=== PATIENT | male | born 1955 | race Hispanic/Latino ===

== ENCOUNTER 2017-03-10 12:13 | Outpatient (CLI) | payer MEDICAID, MEDICARE ==
[2017-03-10 13:02] LABS: Hematocrit 41.3 % (35.5-45.6); Hemoglobin 14.2 gm/dl (11.8-15.2); Mean Corpuscular HGB Conc 34 % (32-34); Mean Corpuscular Hemoglobin 31 pg (28-32); Mean Corpuscular Volume 91 fl (84-94); Platelet Count 179 K/mm3 (140-440); Red Blood Count 4.53 M/mm3 (3.65-5.03); Red Cell Distribution Width 14.2 % (13.2-15.2); White Blood Count 5.3 K/mm3 (4.5-11.0)
[2017-03-10 13:19] LABS: Alanine Aminotransferase 13 units/L (7-56); Albumin 4.3 g/dL (3.9-5); Albumin/Globulin Ratio 1.7 %; Alkaline Phosphatase 47 units/L (35-129); Anion Gap 13 mmol/L; BUN/Creatinine Ratio 26; Blood Urea Nitrogen 18 mg/dL (9-20); Calcium 9.3 mg/dL (8.4-10.2); Carbon Dioxide 32 mmol/L (22-30); Cholesterol 170 mg/dL (50-199); Glucose 85 mg/dL (75-100); HDL Cholesterol 56 mg/dL (40-59); LDL Cholesterol,Direct 88 mg/dL (50-130); Sodium 139 mmol/L (137-145); Total Protein 6.8 g/dL (6.3-8.2); Triglycerides 130 mg/dL (2-149)
[2017-03-10] MEDS ORDERED: NACL ONE (13:34)
--- NOTE | 2017-03-10 14:58 | Cat Scan Report ---
CT NECK WITH CONTRAST: HISTORY: Swelling in neck. TECHNIQUE: Helical CT following IV contrast. Sagittal and coronal reformatted images. FINDINGS: The parotid and submandibular glands are normal. The carotid sheaths are intact. There is no evidence of adenopathy within the neck. The thyroid gland is normal. The glottic structures are normal. The airway is patent. Strap musculature is unremarkable. Hyoid bone and thyroid cartilage are intact. IMPRESSION: Unremarkable CT neck. No mass, adenopathy or inflammatory changes are appreciated. CT CHEST WITH CONTRAST: HISTORY: COPD. TECHNIQUE: Helical CT following IV contrast. Sagittal and coronal reformatted images. FINDINGS: Heart size is normal. There is no evidence of adenopathy within the mediastinum. Pulmonary marv are free of any mass and the lungs are clear of infiltrates. Minimal centrilobular emphysematous changes are noted in the upper lobes. The pleura is unremarkable. Minor linear scarring or atelectasis is present in the lower lobes. No pleural effusion or pneumothorax. No masses involve the chest wall. Limited images of the upper abdomen demonstrate a 1.9 cm partially calcified gallstone within the gallbladder. No findings to suggest acute cholecystitis. IMPRESSION: Mild emphysematous changes. No acute cardiopulmonary process. Gallstone.
== END 2017-03-10 12:14 | disposition home or self-care (01) ==
LOC: CT 12:13
PROVIDERS: ATTEND Internal Medicine
DX: J44.9 Chronic obstructive pulmonary disease, unspecified (principal); R22.1 Localized swelling, mass and lump, neck; K80.20 Calculus of gallbladder without cholecystitis without obstruction; E66.01 Morbid (severe) obesity due to excess calories
CPT/HCPCS: 36415; 70491; 71260; 80053; 80061; 84436; 84443; 85027; Q9967

== ENCOUNTER 2019-05-20 10:55 | Emergency (ER) | payer MEDICARE ==
[2019-05-20] MEDS ORDERED: ASPIRIN 325 MG TAB PO ONE (11:14)
[2019-05-20 12:05] LABS: Basophils % (Auto) 0.8 % (0.0-1.8); Eosinophils # (Auto) 0.2 K/mm3 (0.0-0.4); Hematocrit 40.3 % (35.5-45.6); Hemoglobin 13.7 gm/dl (11.8-15.2); Lymphocytes # (Auto) 1.1 K/mm3 (1.2-5.4); Lymphocytes % (Auto) 19.5 % (13.4-35.0); Mean Corpuscular HGB Conc 34 % (32-34); Mean Corpuscular Volume 93 fl (84-94); Monocytes # (Auto) 0.5 K/mm3 (0.0-0.8); Monocytes % (Auto) 8.2 % (0.0-7.3); Platelet Count 199 K/mm3 (140-440); Red Blood Count 4.36 M/mm3 (3.65-5.03); Red Cell Distribution Width 14.1 % (13.2-15.2)
[2019-05-20 12:26] LABS: BUN/Creatinine Ratio 27; Blood Urea Nitrogen 19 mg/dL (9-20); Calcium 9.5 mg/dL (8.4-10.2); Hemolysis Index 11
--- NOTE | 2019-05-20 12:27 | XRay Report ---
CHEST 1 VIEW INDICATION / CLINICAL INFORMATION: Chest Pain. COMPARISON: 01/18/2014 FINDINGS: SUPPORT DEVICES: None. HEART / MEDIASTINUM: There is prominence the cardiac silhouette LUNGS / PLEURA: There are bibasilar airspace opacities likely representing atelectasis. There is elev ation right hemidiaphragm similar to previous. The upper lung zones are clear. No pneumothorax. ADDITIONAL FINDINGS: No significant additional findings. IMPRESSION: 1. Mild basilar airspace opacities likely represent atelectasis. 2. Elevation of the right hemidiaphragm Signer Name: Wilson Tejeda MD Signed: 05/20/2019 12:23 PM Workstation Name: [id number]
--- NOTE | 2019-05-20 16:22 | Emergency Department Report ---
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 Reports episodes of chest pain over the past few months but did not talk to his doctor about it. Denies provocation/palliation, radiation. Denies recent medication changes. Reports episode was associated with some sweating in the o ffice. MD Complaint: chest pain -: hour(s) Onset: during rest Pain Location: substernal Pain Radiation: none Severity: mild Severity scale (0 -10): 2 Quality: aching Consistency: intermittent Improves With: nothing Worsens With: nothing re: diaphoresis. denies: nausea, vomting, dyspnea, sense of impending doom Other Symptoms: denies: cough, fever, syncope, rash, acid taste in mouth, leg swelling, palpitations, burping - Related Data Previous Rx's Medication Instructions Recorded Last Taken Type Amoxicillin [Trimox CAP] 500 mg PO Q8H #21 capsule 01/21/14 Unknown Rx Famotidine [Pepcid] 20 mg PO BID #60 tablet 01/21/14 Unknown Rx Ipratropium/Albuterol Sulfate 1 ampul IH Q6HRT #100 ampul.neb 01/21/14 Unknown Rx [DUONEB *Not for PRN Use*] Lisinopril [Zestril TAB] 20 mg PO QDAY #30 tablet 01/21/14 Unknown Rx Prednisone [predniSONE 10 mg 10 mg PO .TAPER #1 tab.ds.pk 01/21/14 Unknown Rx (6-Day Pack, 21 Tabs)] carvediloL [Coreg] 6.25 mg PO BID #60 tablet 01/21/14 Unknown Rx Allergies Allergy/AdvReac Type Severity Reaction Status Date / Time No Known Allergies Allergy Verified 01/14/14 13:02 Heart Score - HEART Score History: Moderately suspicious EKG: Normal Age: 45-65 Risk factors: 1-2 risk factors Troponin: < normal limit HEART Score: 3 ED Review of Systems ROS: Stated complaint: CHEST PAIN Other details as noted in HPI Other: GENERAL: No weight change, fatigue, fever, chills, or night sweats SKIN: No changes in skin or hair, no itching, no rashes, no jaundice HEAD: No trauma EYES: No blurriness, tearing, itching, acute visual loss, conjunctival discoloration, or scleral icterus EARS: No hearing loss, tinnitus, vertigo, or earache NOSE: No rhinorrhea, stuffiness, sneezing, itching, or epistaxis MOUTH: No bleeding gums, hoarseness, sore throat, or swelling CARDIAC: Chest pain. No new murmur, palpitations, dyspnea on exertion, orthopnea, PND, or edema RESPIRATORY: No shortness of breath, wheeze, cough, sputum production, hemoptysis GI: No abdominal pain, nausea, vomiting, dysphagia, diarrhea, constipation, hematemesis, melena, hematochezia URINARY: No frequency, urgency, polyuria, dysuria, hematuria, or incontinence MUSCULOSKELETAL: No muscle weakness, joint stiffness, decrease in range of motion, redness, swelling NEUROLOGIC: No headache, syncope, loss of sensation, numbness, tingling, tremors, weakness, paralysis, seizures HEMATOLOGIC: No anemia, easy bruising, bleeding, petechiae, or purpura ENDOCRINE: No hot or cold intolerance, sweating, polyuria, polydipsia or, polyphagia no thyroid problems PSYCHIATRIC: No change in mood, no anxiety, no depression ED Past Medical Hx - Past Medical History Previous Medical History?: Yes Hx Hypertension: Yes Hx Congestive Heart Failure: No Hx Diabetes: No Hx Headaches / Migraines: No Hx Seizures: No Hx Asthma: Yes Hx COPD: Yes Hx Dementia: No - Surgical History Past Surgical History?: Yes Additional Surgical History: Hernia surgeery, Hemmorhoid surgery. Bilateral cataract surgery - Social History Smoking Status: Former Smoker Substance Use Type: Alcohol - Medications Home Medications: Home Medications Medication Instructions Recorded Confirmed Last Taken Type Amoxicillin [Trimox CAP] 500 mg PO Q8H #21 capsule 01/21/14 Unknown Rx Famotidine [Pepcid] 20 mg PO BID #60 tablet 01/21/14 Unknown Rx Ipratropium/Albuterol Sulfate 1 ampul IH Q6HRT #100 ampul.neb 01/21/14 Unknown Rx [DUONEB *Not for PRN Use*] Lisinopril [Zestril TAB] 20 mg PO QDAY #30 tablet 08/15/14 Unknown Rx Prednisone [predniSONE 10 mg 10 mg PO .TAPER #1 tab.ds.pk 01/21/14 Unknown Rx (6-Day Pack, 21 Tabs)] carvediloL [Coreg] 6.25 mg PO BID #60 tablet 01/21/14 Unknown Rx ED Physical Exam - General Limitations: No Limitations - Other Other exam information: GENERAL: Patient in no acute distress HEAD: Normocephalic, atraumatic EYES: PERRLA, EOM intact, no scleral icterus, no conjunctival hemorrhage, visual romero and acuity wnl NOSE: No tenderness, discharge, sinus tenderness MOUTH: No erythema, bleeding, exudate HEART: Regular rate and rhythm, no murmur, S1-S2 are auscultated, no edema, pulses are symmetric LUNGS: No respiratory distress. Bilateral breath sounds, No tachypnea, No retractions, No wheezing, rales, rhonchi ABDOMEN: Normal bowel sounds, abdomen soft, no tenderness, no rebound, no guarding, no distention, no masses, no CVA tenderness MUSCULOSKELETAL: Normal joint range of motion, no redness, no swelling, no tenderness NEUROLOGIC: GCS 15, Alert and Oriented x3, Cranial nerves intact, normal sensation, normal strength, no cerebellar deficit, NIHSS 0 SKIN: Skin is warm and dry, no wounds, no rashes ED Course Vital Signs 05/20/19 05/20/19 05/20/19 11:13 12:00 13:18 Temperature Pulse Rate 63 67 Respiratory 17 14 14 Rate Blood Pressure 128/76 128/76 [Right] O2 Sat by Pulse 96 97 96 Oximetry 05/20/19 05/20/19 13:30 16:44 Temperature 98.3 F 97.9 F Pulse Rate 63 59 L Respiratory 15 14 Rate Blood Pressure 132/75 120/63 [Right] O2 Sat by Pulse 97 98 Oximetry ED Medical Decision Making - Lab Data Result diagrams: 05/20/19 11:24 05/20/19 11:24 Laboratory Results - last 24 hr 05/20/19 05/20/19 05/20/19 11:24 11:24 14:14 WBC 5.7 RBC 4.36 Hgb 13.7 Hct 40.3 MCV 93 MCH 31 MCHC 34 RDW 14.1 Plt Count 199 Lymph % (Auto) 19.5 Crockett % (Auto) 8.2 H Eos % (Auto) 3.0 Baso % (Auto) 0.8 Lymph # 1.1 L Crockett # 0.5 Eos # 0.2 Baso # 0.0 Seg Neutrophils % 68.5 Seg Neutrophils # 3.9 Sodium 139 Potassium 3.9 Chloride 95.9 L Carbon Dioxide 31 H Anion Gap 16 BUN 19 Creatinine 0.7 L Estimated GFR > 60 BUN/Creatinine Ratio 27 Glucose 99 Calcium 9.5 Troponin T < 0.010 < 0.010 - EKG Data When compared to previous EKG there are: no significant change - Radiology Data Radiology results: report reviewed - Medical Decision Making Patient comfortable. Reports symptom improvement. Updated with results. Plan discharge with outpatient follow up. Return if any worsening. Critical care attestation.: If time is entered above; I have spent that time in minutes in the direct care of this critically ill patient, excluding procedure time. ED Disposition Clinical Impression: Chest pain Qualifiers: Chest pain type: unspecified Qualified Code(s): R07.9 - Chest pain, unspecified Disposition: - TO HOME OR SELFCARE Is pt being admited?: No Condition: Stable Instructions: Chest Pain (ED) Referrals: PRIMARY MD LISA [Referring] - 2-3 Days IKER SNOW MD [Staff Physician] - 2-3 Days Time of Disposition: 16:20
[2019-05-20 16:46] VITALS: BP 120/63
== END 2019-05-20 16:55 | disposition home or self-care (01) ==
LOC: ED 10:55
DX: R07.89 Other chest pain (principal); I10 Essential (primary) hypertension; J44.1 Chronic obstructive pulmonary disease with (acute) exacerbation; Z87.891 Personal history of nicotine dependence; Z98.890 Other specified postprocedural states
CPT/HCPCS: 36415; 71045; 80048; 84484; 85025; 93005; 93010